=== PATIENT | male | born 1995 | race Caucasian/White ===

== ENCOUNTER 2021-10-26 19:27 | Emergency (ER) | payer BC ==
[~2021-10-26] VITALS: Ht 167.6 cm; Wt 77.1 kg
[2021-10-26 19:40] VITALS: BP_SYST 108
[2021-10-26 21:54] VITALS: BP_SYST 150
== END 2021-10-26 21:54 | disposition home or self-care (01) ==
LOC: SED 19:27
DX: S31.109A Unspecified open wound of abdominal wall, unspecified quadrant without penetration into peritoneal cavity, initial encounter (principal); R03.0 Elevated blood-pressure reading, without diagnosis of hypertension; Z48.00 Encounter for change or removal of nonsurgical wound dressing; Z88.0 Allergy status to penicillin; W21.04XA Struck by golf ball, initial encounter; Y93.53 Activity, golf; Y92.89 Other specified places as the place of occurrence of the external cause; Y99.8 Other external cause status
CPT/HCPCS: 99282